=== PATIENT | female | born 1960 | race Caucasian/White ===

== ENCOUNTER 2017-08-19 09:59 | Emergency (ER) | payer OTHER ==
[~2017-08-19] VITALS: Ht 157.5 cm; Wt 62.1 kg
[~2017-08-19 09:59] MED LIST: ATELVIA35 MG PO; BUSPIRONE HCL10 MG PO; CLONAZEPAM1 MG PO; CYMBALTA30 MG PO; EFFEXOR XR150 MG PO; GRALISE600 MG PO; IBUPROFEN400 MG PO; KRISTALOSE10 GM PO; LASIX40 MG PO; METFORMIN HCL500 MG PO; MORPHINE SULFAT30 M1 PO; MS CONTIN200 MG PO; NASCOBAL; NUCYNTA ER50 MG PO; Nifedipine PO; PANTOPRAZOLE SO40 MG PO; POTASSIUM CHLO20 ME1 PO; PROMETHAZINE12.5 M1 PO; PYRIDOSTIGMINE60 MG PO; PYRIDOXINE HCL50 MG PO; REGLAN10 MG PO; SENOKOT8.6 MG PO; SINEMET 25-1001 EACH PO; TRIAMCINOLONE A15 G2 TOP; ZANAFLEX4 M1 PO; ZOFRAN ODT4 MG PO
[2017-08-19] MEDS ORDERED: ACETAMINOPHEN 325 MG TAB PO ONE (10:45)
[2017-08-19 12:08] VITALS: BP 126/91
--- NOTE | 2017-08-20 01:05 | Cardiology Report ---
DATE OF STUDY: ATTENDING PHYSICIAN: Dr. Jensen Patterson The left leg veins were interrogated using the duplex scanning method. The mid left greater saphenous vein and distal left greater saphenous vein were poorly visualized. Elsewhere, the veins were compressible without definite deep venous thrombosis. CONCLUSIONS: 1. No definite deep venous thrombosis identified in the left leg veins. 2. Distal and mid left greater saphenous vein was poorly visualized. 3. The right leg was not studied. Job#: [id number] cc:DR. JENSEN PATTERSON
== END 2017-08-19 12:17 | disposition home or self-care (01) ==
LOC: ER 09:59
DX: M79.662 Pain in left lower leg (principal); S70.12XA Contusion of left thigh, initial encounter; W50.0XXA Accidental hit or strike by another person, initial encounter; Y92.512 Supermarket, store or market as the place of occurrence of the external cause
CPT/HCPCS: 93971; 99282